=== PATIENT | female | born 1960 | race African-American/Black ===

== ENCOUNTER 2017-01-27 17:53 | Observation (INO) | payer MEDICARE, MEDICAID ==
[~2017-01-27 17:53] MED LIST: ISOVUE-370 76%-LOCM 1 ML ONE
[2017-01-27 19:13] LABS: #Eosinphils 0.1 thou/uL (0.0-0.7); #Lymphocytes 3.2 thou/uL (1.20-3.40); #Monocytes 0.8 thou/uL (0.11-0.59); #Neutrophils 6.8 thou/uL (1.40-6.50); %Basophils 0.3 % (0.0-1.0); %Eosinophils 0.8 % (0.0-10.0); %Lymphocytes 29.4 % (21.0-51.0); %Monocytes 7.2 % (0.0-10.0); Hematocrit 37.8 % (36.0-47.0); Mean Platelet Volume 6.6 fL (7.4-10.4); White Blood Cell (WBC) Count 10.9 thou/uL (4.8-10.8)
[2017-01-27 19:32] LABS: ALT (SGPT) 14 U/L (8-55); AST (SGOT) 11 U/L (5-34); Alkaline Phosphatase 112 U/L (40-150); Anion Gap 14 mmol/L (10-20); BUN (Urea Nitrogen) 30 mg/dL (9.8-20.1); Bilirubin, Total 0.3 mg/dL (0.2-1.2); Calc. Creatinine Clearance 0 mL/min (70-130); Calcium 10.5 mg/dL (7.8-10.44); Carbon Dioxide 27 mmol/L (22-29); Chloride 97 mmol/L (98-107); Estimated GFR-MDRD 31; Globulin 4.9 g/dL (2.4-3.5); Protein, Total 8.9 g/dL (6.0-8.3)
[2017-01-27 19:35] LABS: Troponin I Less than 0.010 ng/mL (< 0.028)
--- NOTE | 2017-01-27 20:29 | RAD ---
CHEST TWO VIEWS: History: Dyspnea. FINDINGS: Normal cardiac silhouette. Pulmonary vessels and hilum are normal. Costophrenic angles are clear. No masses or consolidation. No pneumothorax or osseous abnormalities. Eventration of the posterior hemidiaphragm is noted. IMPRESSION: Chronic changes. No acute process. POS: [facility]
[2017-01-27] MEDS ORDERED: Lorazepam 2 MG/ML VIAL ONE (20:35)
[2017-01-27] MEDS ORDERED: Senokot 8.6 MG TAB PO PRN (20:45)
[2017-01-27] MEDS ORDERED: Guaifenesin DM 100-10/5 ML UDCUP PO PRN (20:45)
[2017-01-27] MEDS ORDERED: HumaLOG 300 UNITS/3 ML VIAL SC PRN (20:45)
[2017-01-27] MEDS ORDERED: Dextrose 5% in Water 1,000 ML IV PRN (20:45)
[2017-01-27] MEDS ORDERED: Nitroglycerin 0.4 MG TAB (25 Tab Bottle) PO PRN (20:45)
[2017-01-27] MEDS ORDERED: Dextrose 50% Abboject 50 ML SYRINGE SLOW IVP PRN (20:45)
[2017-01-27] MEDS ORDERED: Acetaminophen 325 MG TAB PO PRN (20:45)
[2017-01-27] MEDS ORDERED: Albuterol Sulfate 1.25 MG/3 ML NEB NEB PRN (20:45)
[2017-01-27] MEDS ORDERED: Insulin Detemir 100 UNITS/ML 10 UNITS in Pre-Filled Syringe 1 EACH SC SCH (23:15)
[2017-01-27] MEDS ORDERED: Famotidine 20 MG TAB PO SCH (23:15)
[2017-01-27] MEDS ORDERED: Aspirin 325 MG TAB PO SCH (23:15)
[2017-01-27] MEDS ORDERED: Metoprolol Tartrate 25 MG TAB PO SCH (23:15)
[2017-01-27] MEDS ORDERED: Sodium Chloride 0.9% 1,000 ML IV SCH (23:15)
[2017-01-27 23:16] LABS: Troponin I Less than 0.010 ng/mL (< 0.028)
--- NOTE | 2017-01-27 23:27 | CT ---
CT ANGIOGRAM OF THE CHEST: History: Shortness of breath. Anxiety attack. Shortness of breath on exertion. Comparison: None. Technique: CT angiogram of the chest was performed in the axial plane. Coronal, bilateral oblique, 3 D reformatted images are submitted for interpretation. FINDINGS: Trachea and central bronchi are patent. No masses or consolidation. No pleural effusions, pulmonary contusion, or pneumothorax. No mediastinal mass, lymphadenopathy or hematoma. Heart size is within normal limits. No pericardial effusion. The thoracic aorta and upper abdominal aorta has a normal caliber. No periaortic fat stra nding. There is a hypodensity emanating from the left kidney measuring approximately 1.0 cm. Attenuation co efficient is 42 Hounsfield units. Evaluation is incomplete. There is suboptimal evaluation of the pulmonary arterial system due to timing of bolus. No obvious f illing defect of the central pulmonary arteries. The lobar, segmental, and subsegmental arteries cou ld not be assessed. There are no osteoblastic or osteolytic lesions. IMPRESSION: 1. Suboptimal evaluations of the pulmonary artery system due to timing of bolus. No obvious central pulmonary artery embolism. 2. Indeterminate lesion left kidneys. Non-emergent renal ultrasound can be performed. POS: [facility]
[2017-01-27 23:35] VITALS: BMI 39.2
--- NOTE | 2017-01-28 00:48 | HP ---
REASON FOR ADMISSION: Palpitations, feeling nervous and shortness of breath. HISTORY OF PRESENT ILLNESS: The patient gives history of feeling very anxious and nervous from early this morning. She also had shortness of breath associated with that and got scared. The patient in fact went to [facility] and was given prescription for Xarelto for possible PE. She has had left ankle/ foot ligament tear 1 week back and has been in a surgical boot. She says she is walking in the house. No complaints of cough or expectoration. No complaints of fever. Has no recent increase in her thyroid medications. No CT angio was done at [facility] per patient. PAST MEDICAL AND SURGICAL HISTORY: Hypertension, dyslipidemia, diabetes mellitus from last 5 years, history of asthma with no recent flareup, has had right foot orthopedic surgery and left ankle ligament tear from last 1 week in surgical boot. No prior cardiac workup, hypothyroidism. CURRENT MEDICATIONS: Glipizide 10 mg p.o. twice daily, metformin extended release 1 gram p.o. twice daily, Synthroid 125 mcg p.o. daily, pioglitazone 30 mg p.o. daily, lisinopril 5 mg p.o. daily and hydrochlorothiazide 25 mg p.o. daily. ALLERGIES: No known drug allergies. PERSONAL HISTORY: Does not abuse alcohol or drugs. No history of smoking. FAMILY HISTORY: Mother had history of coronary artery disease, she at 82 years of age. Father at the age of 89, he had history of diabetes. REVIEW OF SYSTEMS: The following complete review of systems was negative, unless otherwise mentioned in the HPI or below: Constitutional: Weight loss or gain, ability to conduct usual activities. Skin: Rash, itching. Eyes: Double vision, pain. ENT/Mouth: Nose bleeding, neck stiffness, pain, tenderness. Cardiovascular: Palpitations, dyspnea on exertion, orthopnea. Respiratory: Shortness of breath, wheezing, cough, hemoptysis, fever or night sweats. Gastrointestinal: Poor appetite, abdominal pain, heartburn, nausea, vomiting, constipation, or diarrhea. Genitourinary: Urgency, frequency, dysuria, nocturia. Musculoskeletal: Pain, swelling. Neurologic/Psychiatric: Anxiety, depression. Allergy/Immunologic: Skin rash, bleeding tendency. PHYSICAL EXAMINATION: GENERAL: The patient is a 57-year-old female, who is currently not in any acute distress. VITAL SIGNS: Blood pressure 128/84, pulse 110 per minute, respiratory rate 20 per minute, temperature 98 degrees Fahrenheit, saturating 98% on room air. NECK: Supple, no elevated JVD. HEENT: Eyes: Extraocular muscles are intact. Pupils are reacting to light. Oral cavity: Mucous membranes are moist. No exudates or congestion. CARDIOVASCULAR: S1, S2 heard. Tachycardic, no murmur. RESPIRATORY: Air entry 1+ bilateral. EXTREMITIES: No ischemic ulcerations or gangrene. CENTRAL NERVOUS SYSTEM: No gross focal deficits seen. The patient is alert, awake, oriented x3. PSYCHIATRIC: The patient's mood is euthymic. No hallucinations or delusions. LABORATORY AND X-RAY FINDINGS: Chest x-ray done shows no acute infiltrate. BUN 30, creatinine 1.6, glucose 284, albumin is 4.0. First set of cardiac enzymes are negative. Serum bicarbonate of 27. White count of 10, H\T\H are 12 and 37, platelet count 408 with 62% neutrophils, MCV is 90. EKG done shows normal sinus rhythm at 95 beats per minute. CLINICAL IMPRESSION AND PLAN: The patient will be under observation on telemetry for palpitations to rule out pulmonary embolism versus acute coronary syndrome. We will obtain two more sets of cardiac enzymes. She is awaiting CT angio chest, to be done here in the ER. The patient also has mild acute kidney injury and we will place her on normal saline at 70 mL per hour. We will continue her on aspirin, small dose of Lopressor, small dose of lisinopril along with glipizide 10 mg twice daily and pioglitazone at 15 mg daily. She will be on Levemir 10 units subcutaneously twice daily. The plan is to obtain CT angio chest to rule out PE in view of her recent left ankle/foot ligament tear and her being in a surgical boot and likely not very active to rule out PE. If her CT angio chest is negative, then we will proceed with a nuclear stress test in the morning. We will also obtain an echo with 2D Doppler for LV function. A free T3, free T4 and TSH will be obtained in the morning. There are no other signs of acute infection as such. We will continue to closely monitor her on telemetry. MARCE[facility]
[2017-01-28 01:34] LABS: Troponin I Less than 0.010 ng/mL (< 0.028)
[2017-01-28 04:56] LABS: Anion Gap 14 mmol/L (10-20); BUN (Urea Nitrogen) 24 mg/dL (9.8-20.1); Calc. Creatinine Clearance 69 mL/min (70-130); Calcium 9.7 mg/dL (7.8-10.44); Carbon Dioxide 23 mmol/L (22-29); Chloride 102 mmol/L (98-107); Cholesterol 144 mg/dl (< 200 Desired); Estimated GFR-MDRD 47; LDL Cholesterol, Calculated 85 mg/dL
[2017-01-28 05:00] LABS: #Eosinphils 0.1 thou/uL (0.0-0.7); #Lymphocytes 2.8 thou/uL (1.20-3.40); #Monocytes 0.6 thou/uL (0.11-0.59); #Neutrophils 5.2 thou/uL (1.40-6.50); %Basophils 0.2 % (0.0-1.0); %Lymphocytes 32.1 % (21.0-51.0); %Monocytes 6.5 % (0.0-10.0); Hematocrit 35.8 % (36.0-47.0); Red Blood Cell (RBC) Count 3.94 mill/uL (4.20-5.40); White Blood Cell (WBC) Count 8.7 thou/uL (4.8-10.8)
[2017-01-28 05:14] LABS: Free T3 1.64 pg/mL (1.71-3.71)
[2017-01-28] MEDS ORDERED: Levothyroxine Sodium 125 MCG TAB PO SCH (06:00)
[2017-01-28] MEDS ORDERED: Aspirin 325 MG TAB PO SCH (08:00)
[2017-01-28] MEDS ORDERED: glipiZIDE 10 MG TAB PO SCH ×2 (08:00→16:30)
[2017-01-28] MEDS ORDERED: Famotidine 20 MG TAB PO SCH (09:00)
[2017-01-28] MEDS ORDERED: Insulin Detemir 100 UNITS/ML 10 UNITS in Pre-Filled Syringe 1 EACH SC SCH (09:00)
[2017-01-28] MEDS ORDERED: Enoxaparin Sodium 40 MG/0.4 ML SYRINGE SC SCH (09:00)
[2017-01-28] MEDS ORDERED: Pioglitazone HCl 15 MG TAB PO SCH (09:00)
[2017-01-28] MEDS ORDERED: Metoprolol Tartrate 25 MG TAB PO SCH (09:00)
[2017-01-28] MEDS ORDERED: Lisinopril 2.5 MG TAB PO SCH (09:00)
[2017-01-28] MEDS ORDERED: Furosemide 20 MG TAB PO PRN (09:07)
[2017-01-28] MEDS ORDERED: Lorazepam 1 MG TAB PO SCH (09:15)
--- NOTE | 2017-01-28 09:23 | ULT ---
BILATERAL LOWER EXTREMITY VENOUS DUPLEX SONOGRAM: Date: 01/28/17 HISTORY: Bilateral leg pain and edema. Dyspnea. FINDINGS: Each common femoral vein and greater saphenous junction were evaluated along with each femoral and d eep femoral, popliteal, and posterior tibial vein. There is good color and spectral Doppler flow, co mpression, and augmentation. IMPRESSION: No sonographic evidence of deep venous thrombosis within either lower extremity. POS: [facility]
[2017-01-28] MEDS ORDERED: Regadenoson 0.4 MG/5 ML SYRINGE ONE (12:00)
[2017-01-28 12:06] VITALS: BP 112/66; TEMP 98
--- NOTE | 2017-01-28 12:34 | NM ---
RADIONUCLIDE STRESS ONLY MYOCARDIAL PERFUSION SCAN WITH CT ATTENUATION CORRECTION AND SPECT IMAGING LEFT VENTRICULAR WALL MOTION EVALUATION AND EJECTION FRACTION: HISTORY: Chest pain. FINDINGS: LexiScan protocol was used. There is heterogeneous uptake of radiotracer throughout the left ventri cular myocardium on the stress images with some breast attenuation apparent. No focal perfusion def ects are visible. QGS analysis of gated SPECT images shows no focal wall motion abnormalities. Left ventricular eject ion fraction=62%. IMPRESSION: 1. Normal stress-only myocardial perfusion scan showing no evidence of ischemia. 2. Normal left ventricular ejection fraction. POS: [facility]
--- NOTE | 2017-01-28 12:47 | DIS ---
DATE OF ADMISSION: 01/27/2017 DATE OF DISCHARGE: 01/28/2017 PRIMARY CARE PROVIDER: [facility] call admission for [facility]. Patient is from out of town, has an out of t own doctor. DISPOSITION: Discharged to home. FINAL DIAGNOSES: Palpitations, unknown etiology; hypertension; diabetes mellitus type 2; hypothyroi dism, on therapy; chronic kidney disease stage 3. DISCHARGE MEDICATIONS: The same as her home medicines. Glipizide 10 mg twice a day, metformin 1000 mg twice a day, hydrochlorothiazide 25 mg a day, levothyroxine 125 mcg a day, lisinopril 5 mg a day , pioglitazone 30 mg a day, Lasix 20 mg a day p.r.n., cyclobenzaprine 10 mg p.o. q.6 hours p.r.n. ALLERGIES: None. PENDING AT THE TIME OF DISCHARGE: Nothing. CODE STATUS: FULL. HOSPITAL COURSE: [facility] with palpitations, feeling nervous, states she got scared. She went to [facility] and was given Xarelto for possible PE. She was seen here. CT angio revealed no obstructing les ion, was considered suboptimal. Venous Doppler was done on both legs, which was unremarkable. The patient's O2 sat was 98 on room air. Her comp metabolic profile showed an elevated blood sugar of 2 00-300. Cardiac enzymes were normal. BUN was 1.4. Creatinine was 1.68 and 1.40, BUN was 30 and 24 . Cardiac stress test was done, which was normal. Results were discussed with the patient. She is being discharged for followup with her PCP. She has been advised to see him in 1 week. Cholestero l was 144, LDL 85, HDL 47. Thyroid function test: T4 was 1.15, TSH 2.7, and T3 was minimally low a t 1.64 with a normal 1.71. FOLLOWUP: The patient has been advised to see her PCP in 7 days for followup.
[2017-01-29] MEDS ORDERED: Levothyroxine Sodium 125 MCG TAB PO SCH (09:00)
== END 2017-01-28 14:37 | disposition home or self-care (01) ==
LOC: ERS 17:53 → 2SW 20:18
PROVIDERS: ADMIT Internal Medicine; ATTEND Internal Medicine
DX: R00.2 Palpitations (principal); E11.22 Type 2 diabetes mellitus with diabetic chronic kidney disease; I12.9 Hypertensive chronic kidney disease with stage 1 through stage 4 chronic kidney disease, or unspecified chronic kidney disease; N18.3 Chronic kidney disease, stage 3 (moderate); E03.9 Hypothyroidism, unspecified; E78.5 Hyperlipidemia, unspecified; Z79.84 Long term (current) use of oral hypoglycemic drugs; Z79.899 Other long term (current) drug therapy; Z98.890 Other specified postprocedural states
CPT/HCPCS: 71020; 71275; 78452; 80048; 80053; 80061; 82553; 82962 ×2; 84439; 84443; 84481; 84484 ×3; 85025 ×2; 85379; 93005; 93017; 93306; 93970; 94760; 96372; 96374; 99285; A9500; G0378; 36415; 36416; 93010; J1650; J1815; J2060; J2785

== ENCOUNTER 2018-10-05 15:22 | Emergency (ER) | payer MEDICARE, MEDICAID ==
[2018-10-05] MEDS ORDERED: traMADol HCl 50 MG TAB ONE (15:58)
--- NOTE | 2018-10-05 16:08 | RAD ---
XR Knee Rt 4 View STANDARD History: Injury. Comparison: None. Findings: Mild suprapatellar soft tissue swelling. There appears to be ossification of the medial men iscus. No acute fracture is appreciated. Mild medial compartment joint space narrowing. No significant joint effusion. Moderate patellofemoral compartment osteophyte formation. 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 MRI recommended for further evaluation if clinically warranted not emergently.
== END 2018-10-05 16:45 | disposition home or self-care (01) ==
LOC: ERS 15:22
DX: M25.561 Pain in right knee (principal); I10 Essential (primary) hypertension; E78.5 Hyperlipidemia, unspecified; J45.909 Unspecified asthma, uncomplicated; E11.9 Type 2 diabetes mellitus without complications

== ENCOUNTER 2019-03-14 11:32 | Emergency (ER) | payer MEDICARE, MEDICAID ==
[2019-03-14] MEDS ORDERED: Ketorolac Tromethamine 30 MG/ML VIAL ONE (12:00)
== END 2019-03-14 12:25 | disposition home or self-care (01) ==
LOC: ERS 11:32
DX: M43.6 Torticollis (principal); K08.89 Other specified disorders of teeth and supporting structures; E11.9 Type 2 diabetes mellitus without complications; E78.5 Hyperlipidemia, unspecified; I10 Essential (primary) hypertension; J45.909 Unspecified asthma, uncomplicated
CPT/HCPCS: 96372; 99283; J1885

== ENCOUNTER 2019-12-23 09:34 | Emergency (ER) | payer MEDICARE, MEDICAID ==
[2019-12-23 10:17] LABS: #Basophils 0.1 thou/uL (0.0-0.2); #Eosinphils 0.2 thou/uL (0.0-0.7); #Lymphocytes 1.7 thou/uL (1.20-3.40); #Monocytes 0.4 thou/uL (0.11-0.59); #Neutrophils 3.3 thou/uL (1.40-6.50); %Basophils 1.3 % (0.0-1.0); %Eosinophils 2.7 % (0.0-10.0); %Lymphocytes 30.2 % (21.0-51.0); %Monocytes 6.9 % (0.0-10.0); Hemoglobin 11.9 g/dL (12.0-16.0); Mean Corpuscular HGB CONC 31.4 g/dL (32.0-36.0); Mean Corpuscular Volume 98.9 fL (78.0-98.0); Mean Platelet Volume 8.6 fL (7.4-10.4); Platelet Count 256 thou/uL (130-400); RBC Distribution Width 12.8 % (11.5-14.5); Red Blood Cell (RBC) Count 3.84 mill/uL (4.20-5.40); White Blood Cell (WBC) Count 5.6 thou/uL (4.8-10.8)
[2019-12-23 10:40] LABS: ALT (SGPT) 10 U/L (8-55); AST (SGOT) 10 U/L (5-34); Albumin 3.9 g/dL (3.4-4.8); Alkaline Phosphatase 82 U/L (40-110); Anion Gap 12 mmol/L (10-20); BUN (Urea Nitrogen) 32 mg/dL (9.8-20.1); Bilirubin, Total 0.2 mg/dL (0.2-1.2); Calc. Creatinine Clearance 0 mL/min (70-130); Calcium 9.5 mg/dL (7.8-10.44); Carbon Dioxide 28 mmol/L (23-31); Chloride 106 mmol/L (98-107); Estimated GFR-MDRD 43; Globulin 3.6 g/dL (2.4-3.5); Glucose 169 mg/dL (80-115); Potassium 4.3 mmol/L (3.5-5.1); Protein, Total 7.5 g/dL (6.0-8.3); Sodium 142 mmol/L (136-145)
[2019-12-23 10:51] LABS: Bacteria/HPF None Seen HPF (None Seen); Bilirubin Negative (Negative); Blood, Urine Negative (Negative); Clarity Clear (Clear); Glucose, Urine (Dipstick) Normal (Negative); Ketone, Urine Negative (Negative); Leukocyte 75 Leu/uL (Negative); Nitrite Negative (Negative); Protein, Urine (Dipstick) Negative (Neg-Trace); RBC/HPF 0-3 HPF (0-3); Squamous Epithelial 0-3 HPF (0-3); Urobilinogen Normal mg/dL (Less than 2); WBC/HPF 0-3 HPF (0-3)
--- NOTE | 2019-12-24 09:29 | CT ---
CT BRAIN WITHOUT CONTRAST: Date: 12/23/2019 HISTORY: Headache. COMPARISON: None. FINDINGS: No evidence of acute infarct, hemorrhage, midline shift, or abnormal extra-axial fluid collections ar e seen. The ventricular size is normal and the basilar cisterns are patent. The bony calvarium is int act. The visualized paranasal sinuses and mastoid air cells are well aerated. IMPRESSION: No CT evidence of acute intracranial process. POS: [facility]
--- NOTE | 2019-12-26 15:20 | EKG ---
Test Reason : Blood Pressure : / mmHG Vent. Rate : 077 BPM Atrial Rate : 077 BPM P-R Int : 144 ms QRS Dur : 086 ms QT Int : 390 ms P-R-T Axes : 057 080 060 degrees QTc Int : 441 ms Normal sinus rhythm Possible Left atrial enlargement Borderline ECG Confirmed by ARMANDO FOWLER DO ([id number]), editor house organ NICOLE HOWARD ([id number]) on 12/26/2019 3:19:46 PM Referred By: Confirmed By:ARMANDO FOWLER DO
== END 2019-12-23 13:06 | disposition home or self-care (01) ==
LOC: ERS 09:34
DX: N39.0 Urinary tract infection, site not specified (principal); R53.1 Weakness; I10 Essential (primary) hypertension; E78.5 Hyperlipidemia, unspecified; E11.9 Type 2 diabetes mellitus without complications; J45.909 Unspecified asthma, uncomplicated
CPT/HCPCS: 36416; 70450; 80053; 81003; 81015; 84484; 85025; 87077; 87086; 93005

== ENCOUNTER 2020-03-07 10:51 | Emergency (ER) | payer MEDICARE, MEDICAID ==
[2020-03-07 11:25] LABS: #Eosinphils 0.2 thou/uL (0.0-0.7); #Lymphocytes 2.1 thou/uL (1.20-3.40); #Monocytes 0.7 thou/uL (0.11-0.59); %Basophils 0.1 % (0.0-1.0); %Eosinophils 1.9 % (0.0-10.0); %Lymphocytes 23.8 % (21.0-51.0); %Monocytes 7.8 % (0.0-10.0); %Neutrophils 66.4 % (42.0-75.0); Mean Corpuscular HGB CONC 30.6 g/dL (32.0-36.0); Mean Corpuscular Hemoglobin 30.3 pg (27.0-31.0); Mean Corpuscular Volume 99.2 fL (78.0-98.0); Mean Platelet Volume 8.1 fL (7.4-10.4); Platelet Count 289 thou/uL (130-400); RBC Distribution Width 12.9 % (11.5-14.5); Red Blood Cell (RBC) Count 3.63 mill/uL (4.20-5.40)
[2020-03-07 11:50] LABS: Bacteria/HPF None Seen HPF (None Seen); Bilirubin Negative (Negative); Blood, Urine Negative (Negative); Clarity Clear (Clear); Glucose, Urine (Dipstick) Normal (Negative); Ketone, Urine Negative (Negative); Leukocyte 25 Leu/uL (Negative); Nitrite Negative (Negative); Protein, Urine (Dipstick) Negative (Neg-Trace); RBC/HPF 0-3 HPF (0-3); Specific Gravity, Urine 1.015 (1.002-1.036); Squamous Epithelial 0-3 HPF (0-3); Urobilinogen Normal mg/dL (Less than 2); WBC/HPF 0-3 HPF (0-3)
[2020-03-07 11:53] LABS: ALT (SGPT) 7 U/L (8-55); AST (SGOT) 10 U/L (5-34); Albumin 3.9 g/dL (3.4-4.8); Alkaline Phosphatase 79 U/L (40-110); Anion Gap 14 mmol/L (10-20); BUN (Urea Nitrogen) 17 mg/dL (9.8-20.1); Bilirubin, Total 0.3 mg/dL (0.2-1.2); Calc. Creatinine Clearance 0 mL/min (70-130); Calcium 9.9 mg/dL (7.8-10.44); Carbon Dioxide 31 mmol/L (23-31); Chloride 99 mmol/L (98-107); Estimated GFR-MDRD 49; Globulin 4.2 g/dL (2.4-3.5); Glucose 217 mg/dL (80-115); Potassium 3.7 mmol/L (3.5-5.1); Protein, Total 8.1 g/dL (6.0-8.3); Sodium 140 mmol/L (136-145)
[2020-03-07] MEDS ORDERED: Mag-Al 1200 mg/1200 mg/30 ML UDCUP ONE (13:55)
[2020-03-07] MEDS ORDERED: Lidocaine Viscous Sol 2% 15 ml UD Cup ONE (13:55)
== END 2020-03-07 14:18 | disposition home or self-care (01) ==
LOC: ERS 10:51
DX: R10.30 Lower abdominal pain, unspecified (principal); E11.9 Type 2 diabetes mellitus without complications; E78.5 Hyperlipidemia, unspecified; I10 Essential (primary) hypertension; J45.909 Unspecified asthma, uncomplicated; Z79.84 Long term (current) use of oral hypoglycemic drugs
CPT/HCPCS: 36415; 80053; 81003; 81015; 85025; 99284

== ENCOUNTER 2021-06-11 12:25 | Emergency (ER) | payer MEDICARE, MEDICAID ==
[2021-06-11] MEDS ORDERED: predniSONE 20 MG TAB ONE (13:51)
[2021-06-11] MEDS ORDERED: Acetaminophen 500 MG TAB ONE (13:51)
[2021-06-11] MEDS ORDERED: Colchicine 0.6 MG TAB PO SCH (15:15)
== END 2021-06-11 15:56 | disposition home or self-care (01) ==
LOC: ERS 12:25
DX: M10.9 Gout, unspecified (principal); I10 Essential (primary) hypertension; E11.9 Type 2 diabetes mellitus without complications; E78.5 Hyperlipidemia, unspecified; J45.909 Unspecified asthma, uncomplicated; Z79.84 Long term (current) use of oral hypoglycemic drugs
CPT/HCPCS: 36415; 84550; J7512

== ENCOUNTER 2021-09-26 10:11 | Emergency (ER) | payer MEDICARE, MEDICAID | END 2021-09-26 12:06 | disposition home or self-care (01) | LOC: ERS 10:11 | DX: M10.9 Gout, unspecified (principal); E11.9 Type 2 diabetes mellitus without complications; I10 Essential (primary) hypertension; E78.5 Hyperlipidemia, unspecified; J45.909 Unspecified asthma, uncomplicated; Z79.84 Long term (current) use of oral hypoglycemic drugs ==

== ENCOUNTER 2022-10-15 11:09 | Emergency (ER) | payer MEDICARE, MEDICAID ==
[2022-10-15] MEDS ORDERED: HYDROcodone/Acetaminophen 5/325 mg Tablet ONE (12:11)
[2022-10-15 12:48] LABS: #Eosinphils 0.1 thou/uL (0.0-0.7); #Monocytes 0.7 thou/uL (0.11-0.59); #Neutrophils 5.9 thou/uL (1.40-6.50); %Basophils 0.4 % (0.0-1.0); %Eosinophils 1.2 % (0.0-10.0); %Monocytes 8.8 % (0.0-10.0); %Neutrophils 71.4 % (42.0-75.0); Hemoglobin 11.8 g/dL (12.0-16.0); Mean Corpuscular HGB CONC 31.1 g/dL (32.0-36.0); Mean Corpuscular Hemoglobin 31.1 pg (27.0-31.0); Mean Platelet Volume 10.7 fL (7.4-10.4); Platelet Count 215 10x3/uL (130-400); RBC Distribution Width 14.1 % (11.5-14.5); White Blood Cell (WBC) Count 8.3 10x3/uL (4.8-10.8)
[2022-10-15 13:12] LABS: CRP (Inflammatory) 4.64 mg/dL (= or < 0.5); Uric Acid 8.3 mg/dL (2.6-6.0)
[2022-10-15 13:13] LABS: ALT (SGPT) 13 U/L (8-55); AST (SGOT) 14 U/L (5-34); Albumin 4.2 g/dL (3.4-4.8); Alkaline Phosphatase 75 U/L (40-110); Anion Gap 15 mmol/L (10-20); BUN (Urea Nitrogen) 25 mg/dL (9.8-20.1); Bilirubin, Total 0.3 mg/dL (0.2-1.2); Calc. Creatinine Clearance 0 mL/min (70-130); Carbon Dioxide 23 mmol/L (23-31); Chloride 107 mmol/L (98-107); Estimated GFR 33; Globulin 3.7 g/dL (2.4-3.5); Potassium 4.6 mmol/L (3.5-5.1); Protein, Total 7.9 g/dL (5.8-8.1); Sodium 140 mmol/L (136-145)
[2022-10-15 13:38] LABS: Glucose 52 mg/dL (80-115)
== END 2022-10-15 14:00 | disposition home or self-care (01) ==
LOC: ERS 11:09
DX: M10.9 Gout, unspecified (principal); E11.9 Type 2 diabetes mellitus without complications; E78.5 Hyperlipidemia, unspecified; I10 Essential (primary) hypertension
CPT/HCPCS: 36415; 36416; 80053; 83880; 84550; 85025; 86140